=== PATIENT | male | born 1935 | race African-American/Black ===

== ENCOUNTER 2016-04-25 11:45 | Emergency (ER) | payer MEDICARE, BC ==
[~2016-04-25] VITALS: Ht 182.9 cm; Wt 102.1 kg
[2016-04-25 12:04] VITALS: BP 122/72
[2016-04-25] MEDS ORDERED: GUAI600T38 PO (12:28)
--- NOTE | 2016-04-25 12:28 | PHYS DOC ---
Adult General Chief Complaint Chief Complaint: GENERALIZED BODY ACHES [facility] HPI 81-year-old male presents with sinus type congestion for the last 6 weeks. He states there is nothing new today with the symptoms but that he cannot get in to see his primary care doctor until the so he wanted to be evaluated. He has not taken anything for his symptoms. He denies any cough. He denies any fever or chills. He denies any chest pain shortness of breath. Denies any nausea or vomiting. He states he has been able eat and drink without difficulty. He does have history of hypertension but no other major health problems. He denies any history of heart disease. He denies any sinus pain. He does state he has some mild ear discomfort. Review of Systems Review of Systems Constitutional: Denies fever or chills [] Eyes: Denies change in visual acuity, redness, or eye pain [] HENT: Has nasal congestion, denies sore throat [] Respiratory: Denies cough or shortness of breath [] Cardiovascular: No additional information not addressed in HPI [] GI: Denies abdominal pain, nausea, vomiting, bloody stools or diarrhea [] : Denies dysuria or hematuria [] Musculoskeletal: Denies back pain or joint pain [] Integument: Denies rash or skin lesions [] Neurologic: Denies headache, focal weakness or sensory changes [] Endocrine: Denies polyuria or polydipsia [] Physical Exam Physical Exam Constitutional: Well developed, well nourished, no acute distress, non-toxic appearance. [] HENT: Normocephalic, atraumatic, bilateral external ears normal, oropharynx moist, no oral exudates, nose normal. [] Eyes: PERRLA, EOMI, conjunctiva normal, no discharge. [] Neck: Normal range of motion, no tenderness, supple, no stridor. [] Cardiovascular:Heart rate regular rhythm, no murmur [] Lungs & Thorax: Bilateral breath sounds clear to auscultation [] Abdomen: Bowel sounds normal, soft, no tenderness, no masses, no pulsatile masses. [] Skin: Warm, dry, no erythema, no rash. [] Back: No tenderness, no CVA tenderness. [] Extremities: No tenderness, no cyanosis, no clubbing, ROM intact, no edema. [] Neurologic: Alert and oriented X 3, normal motor function, normal sensory function, no focal deficits noted. [] Psychologic: Affect normal, judgement normal, mood normal. [] EKG EKG [] Radiology/Procedures Radiology/Procedures [] Course & Med Decision Making Course & Med Decision Making Pertinent Labs and Imaging studies reviewed. (See chart for details) 81-year-old male with sinus congestion and has a completely benign physical exam. His symptoms have been chronic for the last 6 weeks. I see no indication at this time to obtain any laboratory testing or imaging. I will be prescribing a course of Mucinex and advised him to follow up closely with his primary care doctor as he is already doing with strict instructions to return if he develops any chest pain or shortness of breath. He is very agreeable as planned and discharged without incident. Dragon Disclaimer Dragon Disclaimer This electronic medical record was generated, in whole or in part, using a voice recognition dictation system. Departure Departure Impression: Primary Impression: Congestion of nasal sinus Disposition: 01 HOME, SELF-CARE Condition: STABLE Referrals: CASSANDRA PLATA MD Additional Instructions: Please follow up with your primary doctor in the next 2-3 days for your symptoms. Take your decongestant as prescribed. Return to the ER if you develop any worsening of your breathing, develop chest pain, or develop any sinus pain or headache. Scripts Guaifenesin (Mucinex)600 Mg Tablet.er1 Tab PO BID #[id number] TAB Prov:ALON ELIZONDO DO 04/25/16 ALON ELIZONDO DO Apr 25, 2016 12:28
== END 2016-04-25 12:30 | disposition home or self-care (01) ==
LOC: ER 11:45
DX: R09.81 Nasal congestion (principal); I10 Essential (primary) hypertension
CPT/HCPCS: 99282